=== PATIENT | male | born 1960 | race Caucasian/White ===

== ENCOUNTER 2024-02-22 16:11 | Inpatient (IN) | payer MEDICARE, OTHER ==
[~2024-02-22 16:11] MED LIST: Iopamidol 370 76% 100 ML VIAL ONE
[2024-02-22 17:14] LABS: #Basophils 0.04 10x3/uL (0.0-0.2); #Eosinophils 0.09 10x3/uL (0.0-0.5); #Monocytes 0.54 10x3/uL (0.0-1.1); #Neutrophils 5.32 10x3/uL (1.5-8.4); %Basophils 0.5 % (0.0-2.0); %Eosinophils 1.2 % (0.0-6.0); %Lymphocytes 19.1 % (18.0-47.0); %Monocytes 7.3 % (0.0-10.0); %Neutrophils 71.5 % (40.0-75.0); Hematocrit 37.6 % (38.8-50.0); Hemoglobin 12.7 g/dL (13.5-17.5); Mean Corpuscular HGB CONC 33.8 g/dL (32.0-36.0); Mean Corpuscular Hemoglobin 31.4 pg (27.0-33.0); Mean Corpuscular Volume 92.8 fL (81.2-95.1); Mean Platelet Volume 9.9 fL (7.4-10.4); Platelet Count 264 10x3/uL (150-450); RBC Distribution Width 12.1 % (11.5-14.5); Red Blood Cell (RBC) Count 4.05 10x6/uL (4.32-5.72); White Blood Cell (WBC) Count 7.4 10x3/uL (3.5-10.5)
[2024-02-22 17:23] LABS: ALT (SGPT) 7 U/L (8-55); AST (SGOT) 11 U/L (5-34); Albumin 3.4 g/dL (3.4-4.8); Alkaline Phosphatase 80 U/L (40-110); Anion Gap 15 mmol/L (10-20); BUN (Urea Nitrogen) 11 mg/dL (8.4-25.7); Calc. Creatinine Clearance 0 mL/min (70-130); Calcium 9.4 mg/dL (7.8-10.44); Carbon Dioxide 25 mmol/L (23-31); Chloride 96 mmol/L (98-107); Estimated GFR 78; Globulin 4.6 g/dL (2.4-3.5); Glucose 104 mg/dL (80-115); Potassium 3.3 mmol/L (3.5-5.1); Sodium 133 mmol/L (136-145)
[2024-02-22] MEDS ORDERED: cefTRIAXone (ROCEPHIN) 2 GM VIAL ONE (17:26)
[2024-02-22] MEDS ORDERED: Morphine 4 MG/ML VIAL ONE (17:30)
[2024-02-22 18:04] LABS: Troponin I Less than 0.010 ng/mL (< 0.028)
[2024-02-22] MEDS ORDERED: Gabapentin 300 MG CAP ONE (18:05)
[2024-02-22 19:01] LABS: Bilirubin Neg (Negative); Blood, Urine 150 (Negative); Clarity Clear (Clear); Glucose, Urine (Dipstick) Normal (Negative); Ketone, Urine Negative (Negative); Leukocyte Negative (Negative); Nitrite Negative (Negative); Protein, Urine (Dipstick) Negative (Neg-Trace); Urobilinogen Normal mg/dL (Less than 2)
[2024-02-22] MEDS ORDERED: Calcium Carbonate 500 MG ChewTAB PO PRN (19:53)
[2024-02-22] MEDS ORDERED: Ondansetron PF 4 MG/2 ML Vial IVP PRN (19:53)
[2024-02-22] MEDS ORDERED: Senokot S 8.6-50 MG TAB PO PRN (19:53)
[2024-02-22] MEDS ORDERED: Guaifenesin DM 100-10/5 ML UDCUP PO PRN (19:53)
[2024-02-22 20:40] LABS: Bacteria/HPF 1+ HPF (None Seen); CAUTI Indications for Culture Fever or rigors; Squamous Epithelial 0-3 HPF (0-3); WBC/HPF 0-3 HPF (0-3)
[2024-02-22 20:41] LABS: Urine Culture Reflex No No
[2024-02-22] MEDS ORDERED: Nystatin Powder 15 GM BOT TOP SCH (21:00)
[2024-02-22 21:55] VITALS: BMI 29.3
[2024-02-22] MEDS: Lactated Ringer's 1,000 ML IV SCH (22:08)
[2024-02-22] MEDS: VANCOMYCIN 1.75 GM/350 ML BAG 1.75 GM in Premix 1 BAG IVPB ONE (22:08)
[2024-02-22] MEDS: Potassium Chloride 20 MEQ TAB PO SCH (22:09)
[2024-02-22] MEDS: Gabapentin 300 MG CAP PO SCH (22:10)
[2024-02-22] MEDS: Famotidine 20 MG TAB PO SCH (22:10)
[2024-02-22] MEDS: Terbinafine 1% Cream 15 GM Tube TOP SCH (22:11)
[2024-02-23 04:18] LABS: #Basophils 0.03 10x3/uL (0.0-0.2); #Eosinophils 0.04 10x3/uL (0.0-0.5); #Monocytes 0.56 10x3/uL (0.0-1.1); #Neutrophils 3.89 10x3/uL (1.5-8.4); %Basophils 0.5 % (0.0-2.0); %Eosinophils 0.7 % (0.0-6.0); %Lymphocytes 23.8 % (18.0-47.0); %Monocytes 9.4 % (0.0-10.0); %Neutrophils 65.3 % (40.0-75.0); Hematocrit 36.3 % (38.8-50.0); Mean Corpuscular HGB CONC 33.1 g/dL (32.0-36.0); Mean Corpuscular Hemoglobin 30.9 pg (27.0-33.0); Mean Corpuscular Volume 93.6 fL (81.2-95.1); Mean Platelet Volume 10.2 fL (7.4-10.4); Platelet Count 243 10x3/uL (150-450); RBC Distribution Width 12.2 % (11.5-14.5); Red Blood Cell (RBC) Count 3.88 10x6/uL (4.32-5.72)
[2024-02-23] MEDS: Ketorolac Tromethamine 30 MG (1 mL) VIAL IVP PRN (04:20)
[2024-02-23 04:32] LABS: Anion Gap 14 mmol/L (10-20); BUN (Urea Nitrogen) 9 mg/dL (8.4-25.7); Calc. Creatinine Clearance 118 mL/min (70-130); Calcium 8.2 mg/dL (7.8-10.44); Carbon Dioxide 24 mmol/L (23-31); Chloride 102 mmol/L (98-107); Cholesterol 134 mg/dl (< 200 Desired); Estimated GFR 86; Glucose 114 mg/dL (80-115); HDL Cholesterol 27 mg/dL (>60 Neg Risk); LDL Cholesterol, Calculated 95 mg/dL; Potassium 3.7 mmol/L (3.5-5.1); Sodium 136 mmol/L (136-145); Triglycerides 60 mg/dL (Less than 150)
[2024-02-23 04:39] LABS: Vancomycin, Random 19.2 ug/mL (See Comment)
[2024-02-23] MEDS: VANCOMYCIN 1.25 GM/250 ML BAG 1.25 GM in Premix 1 BAG IVPB SCH (08:53)
[2024-02-23] MEDS: Enoxaparin 40 MG (0.4 mL) SYRINGE SC SCH (08:54)
[2024-02-23] MEDS ORDERED: Iopamidol 370 76% 150 ML VIAL FS ONE (08:54)
[2024-02-23] MEDS: Lisinopril 5 MG TAB PO SCH (08:55)
[2024-02-23] MEDS: FLU (Fluarix Triv) TS24-25(6MOS UP)/PF 45 MCG/0.5 ML Syringe IM ONE (11:24)
[2024-02-23 12:41] LABS: Hemoglobin A1c 4.9 % (4.0-6.0)
[2024-02-23] MEDS: cefTRIAXone\\ROCEPHIN 2 GM in Sodium Chloride 0.9% 100 ML IVPB SCH (20:05)
[2024-02-23] MEDS: Atorvastatin Calcium 20 MG TAB PO SCH (20:05)
[2024-02-24] MEDS: Acetaminophen 325 MG TAB PO PRN (08:55)
[2024-02-24] MEDS: Aspirin 81 mg Enteric Coated Tablet PO SCH (08:57)
[2024-02-24 10:25] VITALS: BMI 29.3
[2024-02-24] MEDS: traMADol HCl 50 MG TAB PO PRN (16:53)
[2024-02-25 04:00] LABS: Vancomycin, Random 22.9 ug/mL (See Comment)
[2024-02-26] MEDS: diphenhydrAMINE 25 MG CAP PO SCH (12:34)
[2024-02-26 12:38] VITALS: BP 133/83; TEMP 97.7
== END 2024-02-26 12:50 | disposition home or self-care (01) | DRG 872 ==
LOC: CSHERS 16:11 → CSHTELE 19:54
PROVIDERS: ADMIT Student in an Organized Health Care Education/Training Program; ATTEND Internal Medicine
DX: A41.9 Sepsis, unspecified organism (principal); L03.116 Cellulitis of left lower limb; I10 Essential (primary) hypertension; E78.5 Hyperlipidemia, unspecified; E87.6 Hypokalemia; G62.9 Polyneuropathy, unspecified; I73.9 Peripheral vascular disease, unspecified; G89.29 Other chronic pain; M54.9 Dorsalgia, unspecified; Z87.891 Personal history of nicotine dependence; Z79.899 Other long term (current) drug therapy
CPT/HCPCS: 36415; 36416; 75635; 80048; 80053; 80061; 80202; 81001; 82565; 83036; 83605; 83880; 84443; 84484; 84520; 85025; 86140; 87040; 87086; 90656; 93005; 93923; 96365; 96375; 97139; J0696; J1650; J1885; J2272; J3370; J7120; Q9967